=== PATIENT | male | born 1970 | race Caucasian/White ===

== ENCOUNTER 2018-01-14 13:22 | Emergency (ER) | payer OTHER ==
[~2018-01-14] VITALS: Ht 167.6 cm; Wt 105.6 kg
[2018-01-14 13:29] VITALS: Ht 167.6 cm; Wt 105.6 kg
[2018-01-14 13:47] VITALS: O2SAT 96
[2018-01-14] MEDS ORDERED: KETOROLAC TROMETHAMINE 30 MG/ML VIAL IV STA (13:58)
[2018-01-14] MEDS ORDERED: ACETAMINOPHEN 500 MG TAB PO STA (13:58)
[2018-01-14] MEDS ORDERED: SODIUM CHLORIDE 0.9% 1000ML 2,000 ML IV STA (13:58)
[2018-01-14] MEDS ORDERED: BENZONATATE 100MG CAP PO ONE (14:00)
[2018-01-14] MEDS ORDERED: NAPR1TAB9 PO (14:09)
[2018-01-14 14:39] LABS: BASO % 0.2 %; BASO ABS # 0.02 K/uL (0-0.2); EOS ABS # 0.08 K/uL (0-0.5); HEMATOCRIT 45.1 % (42-52); HEMOGLOBIN 15.4 g/dL (14.0-18.0); IG# 0.01 K/uL (0.00-0.02); LYMPH % 25.4 %; LYMPH ABS # 2.05 K/uL (1.2-3.4); MEAN CELL VOLUME 84.6 fL (80-100); MEAN CORPUSCULAR HEMOGLOBIN 28.9 pg (25-34); MEAN CORPUSCULAR HGB CONC 34.1 g/dl (32-36); MONO % 10.9 %; MONO ABS # 0.88 K/uL (0.11-0.59); NEUT % 62.4 %; NEUT ABS # 5.04 K/uL (1.4-6.5); PLATELET COUNT 185 K/uL (130-400); RED CELL DISTRIBUTION WIDTH CV 12.8 % (11.5-14.5); RED CELL DISTRIBUTION WIDTH SD 39.4 fL (36.4-46.3); WHITE BLOOD COUNT 8.08 K/uL (4.8-10.8)
[2018-01-14 14:57] LABS: CALCIUM 8.5 mg/dl (8.5-10.1); CREATININE 1.04 mg/dl (0.60-1.40); POTASSIUM 3.7 mmol/L (3.5-5.1)
--- NOTE | 2018-01-14 15:10 | DIAGNOSTIC IMAGING REPORT ---
CHEST 2 VIEWS ROUTINE CLINICAL HISTORY: 47 years-old Male presenting with cough and fever. TECHNIQUE: PA and lateral views of the chest were obtained. COMPARISON: 08/14/2012. FINDINGS: Cardiomediastinal silhouette normal. Lungs and pleural spaces clear. Osseous structures normal. Upper abdomen normal. IMPRESSION: 1. No acute cardiopulmonary disease. Electronically signed by: Teddy Fitch M.D. 01/14/2018 3:09 PM Dictated Date/Time: 01/14/2018 3:09 PM
[2018-01-14 15:54] LABS: INFLUENZA B ANTIGEN Neg for Influ B (NEG)
[2018-01-14 16:00] VITALS: TEMP 37.9
[2018-01-14] MEDS ORDERED: BENZ100C18 PO (17:03)
[2018-01-14 17:04] VITALS: BP 133/63; PULSE 93; O2SAT 97
--- NOTE | 2018-01-14 20:53 | EMERGENCY ROOM VISIT NOTE ---
History Report prepared by Kendra: Martine Noriega Under the Supervision of: Dr. Steve Rainey D.O. First contact with patient: 13:52 Chief Complaint: FLU LIKE SX Stated Complaint: COUGHING FOR 3 DAYS; HEADACHE History of Present Illness The patient is a 47 year old male who presents to the Emergency Room with complaints of persistent flu symptoms starting 2 days ago. The patient started with a dry cough and sore throat 2 days ago. Yesterday, he started having a fever. He felt weak and spent most of the day in bed yesterday. He is having chest pain but only with coughing. He had a migraine yesterday. Today he just has a dull headache. His nose is stuffy. No remitting factors. He denies any ear pain, abdominal pain, urinary symptoms, open wounds or sores. He denies any medical problems. He has no known sick contacts. He works in [employer]. His immunizations are up to date. Source of History: patient Onset: 2 days ago Position: other (generalized) Quality: other (flu symptoms) Timing: other (persistent) Associated Symptoms: + fevers, + headache, + sorethroat, + cough, + chest pain, + fatigue, + weakness, No abdominal pain, No urinary symptoms, No rash Review of Systems See HPI for pertinent positives & negatives. A total of 10 systems reviewed and were otherwise negative. Past Medical & Surgical Medical Problems: (1) Abdominal pain (2) Back pain (3) Concussion (4) Dizziness (5) No Known Active Medical Problems (6) Vertigo Family History Kidney disease Social History Smoking Status: Current Every Day Smoker Alcohol Use: none Drug Use: none Marital Status: single Occupation Status: employed Current/Historical Medications Scheduled Benzonatate (Tessalon Perles), 100 MG PO TID Naproxen (Aleve), 220 MG PO UD Allergies Coded Allergies: No Known Allergies (Unverified , 01/14/18) Physical Exam Vital Signs Date Time Temp Pulse Resp B/P (MAP) Pulse Ox O2 Delivery O2 Flow Rate FiO2 01/14/18 17:04 93 18 133/63 97 Room Air 01/14/18 16:00 37.9 92 16 148/85 95 Room Air 01/14/18 14:32 102 18 142/102 95 Room Air 01/14/18 14:21 106 01/14/18 13:47 96 Room Air 01/14/18 13:47 96 Room Air 01/14/18 13:29 38.3 103 18 163/91 96 Room Air Physical Exam GENERAL: Sitting up in bed, talking in full sentences with a persistent cough, non-toxic EYE EXAM: normal conjunctiva. OROPHARYNX: erythema of the posterior oropharynx, no exudate, lips, buccal mucosa, and tongue normal and mucous membranes are dry NECK: supple, no nuchal rigidity, no adenopathy, non-tender, negative Brudzinski 's. LUNGS: Clear to auscultation. Normal chest wall mechanics HEART: tachycardic, no murmurs, S1 normal and S2 normal ABDOMEN: abdomen soft, non-tender, normo-active bowel sounds, no masses, no rebound or guarding. BACK: Back is symmetrical on inspection and there is no deformity, no midline tenderness, no CVA tenderness. SKIN: no rashes and no bruising UPPER EXTREMITIES: upper extremities are grossly normal. LOWER EXTREMITIES: No pitting edema. Calves equal bilaterally. NEURO EXAM: Normal sensorium, cranial nerves II-XII grossly intact, normal speech, no gross weakness of arms, no gross weakness of legs. Medical Decision & Procedures ER Provider Diagnostic Interpretation: Radiology results as stated below per my review and the radiologist's interpretation: CHEST 2 VIEWS ROUTINE CLINICAL HISTORY: 47 years-old Male presenting with cough and fever. TECHNIQUE: PA and lateral views of the chest were obtained. COMPARISON: 08/14/2012. FINDINGS: Cardiomediastinal silhouette normal. Lungs and pleural spaces clear. Osseous structures normal. Upper abdomen normal. IMPRESSION: 1. No acute cardiopulmonary disease. Electronically signed by: Teddy Fitch M.D. 01/14/2018 3:09 PM Dictated Date/Time: 01/14/2018 3:09 PM Laboratory Results 01/14/18 14:20 Red Blood Count 5.33, Mean Corpuscular Volume 84.6, Mean Corpuscular Hemoglobin 28.9, Mean Corpuscular Hemoglobin Concent 34.1, Mean Platelet Volume 10.0, Neutrophils (%) (Auto) 62.4, Lymphocytes (%) (Auto) 25.4, Monocytes (%) (Auto) 10.9, Eosinophils (%) (Auto) 1.0, Basophils (%) (Auto) 0.2, Neutrophils # (Auto ) 5.04, Lymphocytes # (Auto) 2.05, Monocytes # (Auto) 0.88, Eosinophils # (Auto ) 0.08, Basophils # (Auto) 0.02 01/14/18 14:20 Test 01/14/18 13:47 01/14/18 14:20 Influenza Type A Antigen Neg for Influ A (NEG) Influenza Type B Antigen Neg for Influ B (NEG) White Blood Count 8.08 K/uL (4.8-10.8) Red Blood Count 5.33 M/uL (4.7-6.1) Hemoglobin 15.4 g/dL (14.0-18.0) Hematocrit 45.1 % (42-52) Mean Corpuscular Volume 84.6 fL (80-100) Mean Corpuscular Hemoglobin 28.9 pg (25-34) Mean Corpuscular Hemoglobin Concent 34.1 g/dl (32-36) Platelet Count 185 K/uL (130-400) Mean Platelet Volume 10.0 fL (7.4-10.4) Neutrophils (%) (Auto) 62.4 % Lymphocytes (%) (Auto) 25.4 % Monocytes (%) (Auto) 10.9 % Eosinophils (%) (Auto) 1.0 % Basophils (%) (Auto) 0.2 % Neutrophils # (Auto) 5.04 K/uL (1.4-6.5) Lymphocytes # (Auto) 2.05 K/uL (1.2-3.4) Monocytes # (Auto) 0.88 K/uL (0.11-0.59) Eosinophils # (Auto) 0.08 K/uL (0-0.5) Basophils # (Auto) 0.02 K/uL (0-0.2) RDW Standard Deviation 39.4 fL (36.4-46.3) RDW Coefficient of Variation 12.8 % (11.5-14.5) Immature Granulocyte % (Auto) 0.1 % Immature Granulocyte # (Auto) 0.01 K/uL (0.00-0.02) Anion Gap 7.0 mmol/L (3-11) Est Creatinine Clear Calc Drug Dose 102.1 ml/min Estimated GFR () 100.0 Estimated GFR (Non- 86.3 BUN/Creatinine Ratio 10.4 (10-20) Calcium Level 8.5 mg/dl (8.5-10.1) Laboratory results per my review. Medications Administered Medications (Trade) Dose Ordered Sig/Joo Route Start Time Stop Time Status Last Admin Dose Admin Ketorolac Tromethamine (Toradol Inj) 30 mg NOW STAT IV 01/14/18 13:58 01/14/18 13:59 DC 01/14/18 14:49 30 MG Acetaminophen (Tylenol Tab) 1,000 mg NOW STAT PO 01/14/18 13:58 01/14/18 13:59 DC 01/14/18 14:37 1,000 MG Sodium Chloride 2,000 ml @ 999 mls/hr Q2H1M STAT IV 01/14/18 13:58 01/14/18 15:58 DC 01/14/18 14:36 999 MLS/HR Benzonatate (Tessalon Perles Cap) 100 mg NOW ONCE PO 01/14/18 14:00 01/14/18 14:01 DC 01/14/18 14:36 100 MG ED Course ED COURSE: Vital signs were reviewed and showed fever, tachycardia. The patients medical record was reviewed The above diagnostic studies were performed and reviewed. ED treatments and interventions as stated above. 1353: The patient was evaluated in room A9B. A complete history and physical examination was performed. 1358: Sodium Chloride 2000 ml @ 999 mls/hr IV, Acetaminophen 1000 mg PO, Toradol Inj 30 mg IV. 1400: Benzonatate 100 mg PO. 1602: Upon reevaluation, the patient is resting comfortably. I discussed my findings with the patient and he understands and agrees with the treatment plan. Based on the patients age, coexisting illnesses, exam and lab findings the decision to treat as an outpatient was made. The patient remained stable while under my care. The patient appeared well at the time of discharge. Medical Decision Differential diagnosis: Etiologies such as viral syndrome, otitis, pharyngitis, pneumonia, influenza, meningitis, urinary tract infection, sepsis, bacteremia, as well as others were entertained. Patient is a 47-year-old male who presents to ER for upper respiratory symptoms associated with cough, runny nose and sore throat. Fevers have been present since yesterday. Patient is otherwise well-appearing. No signs of meningitis or encephalitis. Heart rate improved with fluids. CBC along with BMP was unremarkable. Influenza was negative. Chest x-ray was unremarkable. Based on the patient's symptoms I do believe that this most consistent with viral URI. He is given Tessalon Perles and discharged follow-up with PCP as an outpatient. Discussed with Pt concerning signs and symptoms to watch out for. Pt was instructed to follow up with their PCP and discussed with the patient their option to return to the ED at anytime for persistent or worsening symptoms. The appropriate anticipatory guidance and out-patient management, including indications for return to the emergency department, were explained at length to the patient and understood. Medication Reconcilliation Current Medication List: was personally reviewed by me Blood Pressure Screening Patient's blood pressure: Normal blood pressure Blood pressure disposition: Did not require urgent referral Impression Primary Impression: Viral URI with cough Scribe Attestation The scribe's documentation has been prepared under my direction and personally reviewed by me in its entirety. I confirm that the note above accurately reflects all work, treatment, procedures, and medical decision making performed by me. Departure Information Dispostion Home / Self-Care Prescriptions Benzonatate (TESSALON PERLES) 100 Mg Cap 100 MG PO TID, #30 CAP Prov: Steve Rainey, DO 01/14/18 Referrals Sarah Hudson M.D. (MEDICAL) (PCP) Forms HOME CARE DOCUMENTATION FORM, IMPORTANT VISIT INFORMATION Patient Instructions ED Gastroenteritis Viral, My [facility] Additional Instructions Please follow up with your primary care doctor with in the next 24 hours. Any worsening of your symptoms, please return to the ED immediately. This includes any fevers greater than 100.4, worsening pain, chest pain, shortness breath, persistent nausea, vomiting, unable to eat or drink, or any other concerning signs or symptoms from your standpoint. You should have your blood sugar followed up by her primary care doctor tomorrow as well. Please take Tessalon Perles as needed for coughing. Take Tylenol or Motrin as needed for muscle aches.
== END 2018-01-14 17:07 | disposition home or self-care (01) ==
LOC: C.EDB 13:25 → C.EDA 17:07
DX: J06.9 Acute upper respiratory infection, unspecified (principal); R05 Cough; F17.200 Nicotine dependence, unspecified, uncomplicated